=== PATIENT | male | born 1945 | race Caucasian/White ===

== ENCOUNTER 2023-12-02 11:20 | Outpatient (OUT) | payer MEDICARE, SELFPAY ==
[2023-12-02 12:07] LABS: Basophils Absolute Auto 0.1 10^3/uL (0.0-0.1); Basophils Percent Auto 1.1 % (0.2-2.0); Eosinophils Absolute Auto 0.4 10^3/uL (0.0-0.7); Eosinophils Percent Auto 6.8 % (0.9-7.0); Hematocrit 44.7 % (42.0-54.0); Hemoglobin 15.1 g/dL (14.0-18.0); Immature Granulocytes Abs Auto 0.01 10^3/uL (0.00-0.03); Immature Granulocytes Pct Auto 0.2 % (0.0-0.5); Lymphocytes Absolute Auto 2.6 10^3/uL (1.2-3.8); Lymphocytes Percent Auto 46.3 % (20.5-60.0); Mean Corpuscular HGB Conc 33.8 g/dL (29.9-35.2); Mean Corpuscular Hemoglobin 33.3 pg (25.9-34.0); Mean Corpuscular Volume 98.5 fL (80.0-94.0); Mean Platelet Volume 9.2 fL (9.5-13.5); Monocytes Absolute Auto 0.5 10^3/uL (0.3-0.8); Monocytes Percent Auto 8.4 % (1.7-12.0); Neutrophils Absolute Auto 2.1 10^3/uL (1.4-6.5); Neutrophils Percent Auto 37.2 % (43.0-75.0); Platelet Count 135 10^3/uL (150-450); Red Blood Count 4.54 10^6/uL (4.70-6.10); Red Cell Distribution Width 12.5 % (11.0-15.0); White Blood Count 5.7 10^3/uL (4.0-11.0)
[2023-12-02 12:41] LABS: Alanine Aminotransferase 28 U/L (16-63); Albumin Globulin Ratio 1.1; Albumin Level 3.6 g/dL (3.4-5.0); Alkaline Phosphatase 62 U/L (46-116); Anion Gap 14.6; Aspartate Amino Transferase 17 U/L (15-37); BUN Creatinine Ratio 12.8; Bilirubin Direct 0.2 mg/dL (0.0-0.2); Bilirubin Total 0.6 mg/dL (0.2-1.0); Calcium 8.8 mg/dL (8.5-10.1); Carbon Dioxide 27.3 mmol/L (21.0-32.0); Chloride 103 mmol/L (98-107); Chol HDL Ratio 2.8; Cholesterol 114 mg/dL (<=200); Estimated GFR (African America 55 (>=60); Estimated GFR (Non-African Ame 46 (>=60); Globulin 3.3 g/dL; Glucose 114 mg/dL (74-106); HDL Cholesterol 40 mg/dL (40-60); Potassium 3.9 mmol/L (3.5-5.1); Sodium 141 mmol/L (136-145); Total Protein 6.9 g/dL (6.4-8.2); Triglycerides 211 mg/dL (<=150); VLDL CHOLESTEROL 42.2 mg/dL
[2023-12-02 13:14] LABS: Prostate Specific Antigen Dx 0.51 ng/mL (<=4.00)
== END 2023-12-02 11:21 | disposition home or self-care (01) ==
LOC: LAB 11:23
PROVIDERS: PCP Family Medicine; Visit Provider Family Medicine
DX: Z79.899 Other long term (current) drug therapy (principal); I10 Essential (primary) hypertension; E78.5 Hyperlipidemia, unspecified; Z12.5 Encounter for screening for malignant neoplasm of prostate
CPT/HCPCS: 36415; 80048; 80061; 80076; 84153; 85025

== ENCOUNTER 2024-01-21 11:05 | Outpatient (OUT) | payer MEDICARE, SELFPAY ==
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
[2024-01-21 11:54] LABS: Estimated Average Glucose 126 mg/dL
[2024-01-21 12:59] LABS: Anion Gap 15.5; BUN Creatinine Ratio 12.1; Calcium 8.8 mg/dL (8.5-10.1); Carbon Dioxide 25.1 mmol/L (21.0-32.0); Chloride 102 mmol/L (98-107); Estimated GFR (African America 49 (>=60); Estimated GFR (Non-African Ame 41 (>=60); Glucose 189 mg/dL (74-106); Potassium 4.6 mmol/L (3.5-5.1); Sodium 138 mmol/L (136-145)
[2024-01-21 17:06] LABS: Creatinine Urine Random 213.18 mg/dL (20.00-300.00); Protein Creatinine Ratio Urine 0.08; Total Protein Urine Random 16.2 mg/dL (<=11.9)
== END 2024-01-21 11:06 | disposition home or self-care (01) ==
LOC: LAB 11:07
PROVIDERS: PCP Family Medicine; Visit Provider Internal Medicine
DX: R73.09 Other abnormal glucose (principal); R79.89 Other specified abnormal findings of blood chemistry
CPT/HCPCS: 36415; 80048; 82570; 83036; 84156

== ENCOUNTER 2025-04-26 08:56 | Outpatient (OUT) | payer MEDICARE, SELFPAY ==
--- OUTSIDE RECORDS SUMMARY | 2025-04-26 09:00 | XMS_ITS | Encounter Summary ---
Author Organization [facility] Address [address] [address] Care Team Providers Care Furniture Sander Name Role Phone Reed Taveras MD Primary Care Provider [phone] Reed Taveras MD Primary Care Provider [phone] Encounter Details Date Type Department Care Team ([facility] Contact Info) Description 12/02/2023 Orders Only [facility] [address] [place] [phone] Reed Taveras MD [address] [place] [address] Social History Tobacco Use Types Packs/Day Years Used Date Smoking Tobacco: Every Day Cigarettes Smokeless Tobacco: Never PHQ-2 Answer Date Recorded Patient Health Questionnaire-2 Score 0 11/24/2023 Sex and Gender Information Value Date Recorded Sex Assigned at Not on file Legal Sex Male 11:17 AM EST Gender Identity Not on file Sexual Orientation Not on file documented as of this encounter Plan of Treatment Upcoming Encounters Date Type Department Care Team ([facility] Contact Info) Description 10/25/2025 9:45 AM EST Office Visit [facility] [address] [place] [phone] Reed Taveras MD [address] [place] [phone] documented as of this encounter Visit Diagnoses Not on filedocumented in this encounter Care Teams Furniture Sander Relationship Specialty Start Date End Date Reed Taveras MD PCP - General Family Medicine 11/18/23 01/19/24 Reed Taveras MD [address] [place] [phone] PCP - General Family Medicine 01/20/24 documented as of this encounter
--- OUTSIDE RECORDS SUMMARY | 2025-04-26 09:00 | XMS_ITS | Encounter Summary ---
Author Organization [facility] Address [address] [facility] [place] [address] Care Team Providers Care Boat Diesel Motor Mechanic Name Role Phone Reed Taveras MD Primary Care Provider [phone] Encounter Details Date Type Department Care Team ([facility] Contact Info) Description 04/25/2025 Bamboo flowsheet [facility] [address] [place] [address] Reed Taveras MD [address] [place] [address] Social History Tobacco Use Types Packs/Day Years Used Date Smoking Tobacco: Every Day Cigarettes Passive Smoke Exposure: Current Smokeless Tobacco: Never Alcohol Use Standard Drinks/Week Comments Never 0 (1 standard drink = 0.6 oz pur e alcohol) PHQ-2 Answer Date Recorded Patient Health Questionnaire-2 Score 1 04/25/2025 Sex and Gender Information Value Date Recorded Sex Assigned at Not on file Legal Sex Male 11:17 AM EST Gender Identity Not on file Sexual Orientation Not on file documented as of this encounter Plan of Treatment Upcoming Encounters Date Type Department Care Team (Late Contact Info) Description 10/25/2025 9:45 AM EST [facility] Visit [facility] [address] [place] [address] Reed Taveras MD [address] [place] [phone] documented as of this encounter Visit Diagnoses Not on filedocumented in this encounter Additional Health Concerns Assessment Noted Time PHQ-9 Depression Total Score: 2 04/25/20 25 11:00 AM EDT documented as of this encounter Care Teams Boat Diesel Motor Mechanic Relationship Specialty Start Date End Date Reed Taveras MD [address] [place] [address] PCP - General Family Medicine 01/20/24 documented as of this encounter
--- OUTSIDE RECORDS SUMMARY | 2025-04-26 09:00 | XMS_ITS | Clinical Summary ---
Author Organization [facility] Address [address] [place] [address] Care Team Providers Care Gel Coat Sprayer Name Role Phone Reed Taveras MD Primary Care Provider Allergies No known active allergies Medications aspirin 81 MG EC tablet Take 81 mg by mouth in the morning. Active esomeprazole (NexIUM) [address] capsule Take 20 mg by mouth in the morning. Take before meals. Do not open capsule.. Active lisinopril 10 MG tabletIndicatio ns:Essential hypertension, benign TAKE 1 TABLET BY MOUTH IN THE MORNING 90 tablet 3 09/27/2024 Active atorvastatin (Lipitor) 40 MG tabletIndicatio ns:Dyslipidemia TAKE 1 TABLET BY MOUTH AT BEDTIME 90 tablet 3 09/27/2024 Active hydroCHLOROthia zide (HYDRODiuril) 25 MG tabletIndicatio ns:Essential hypertension, benign TAKE 1 TABLET BY MOUTH IN THE MORNING 90 tablet 3 09/27/2024 Active metoprolol tartrate (Lopressor) 25 MG tabletIndicatio ns:Essential hypertension, benign Take 0.5 tablets (12.5 mg) by mouth in the morning and 0.5 tablets (12.5 mg) before bedtime. 90 tablet 3 10/25/2024 Active Active Problems Problem Noted Date Diagnosed Date Medicare annual wellness visit, subsequent 04/25 Assessment & Plan (04/25/2025 11:54 AM EDT): Due for labs. Discussed proper diet and regular aerobic exercise. Need aerobic exercise 5-6 days a week for 30 minutes at a time. Smaller portions and limit total calories. Tetanus every 10 years. Advised not to smoke. Discussed daily Aspirin therapy. Prediabetes 12/02/2023 Stage 3a chronic kidney disease (CKD) 12/02/2023 Assessment & Plan (10/25/2024 12:14 PM EST): Repeat labs next visit. Essential hypertension, benign 11/24/2023 Assessment & Plan (10/25/2024 12:14 PM EST): BP controlled and monitor PRN. Assessment & Plan (11/24/2023 11:13 AM EST): BP controlled and monitor PRN. Coronary atherosclerosis of sun'aq coronary mark ry 11/24/2023 Dyslipidemia 11/24/2023 Gastroesophageal reflux disease 11/24/2023 Assessment & Plan (10/25/2024 12:14 PM EST): Symptoms controlled with nexium and continue. Assessment & Plan (11/24/2023 11:13 AM EST): Symptoms controlled with nexium and continue. Mitral valve stenosis, non-rheumatic 11/24/2023 Screening PSA (prostate specific antigen) 2023 Encounter for long-term (current) use of medicat ions 11/24/2023 Resolved Problems Problem Noted Date Diagnosed Date Resolved Date Elevated random blood glucose level 01/20/2024 10/25/2024 Assessment & Plan (01/20/2024 2:19 PM EDT): Check A1C. Elevated serum creatinine 01/20/2024 Assessment & Plan (01/20/2024 2:19 PM EDT): Likely has underlying CKD. Repeat BMP, along with urine creatinine,protein. Rash in adult 01/20/2024 10/25/2024 Assessment & Plan (01/20/2024 2:20 PM EDT): Discrete annular lesions, localized to LE, extremely pruritic. 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 R/o underlying T2 DM Trial of hydrocortisone cream along with prednisone taper. Encounters Date Type Department Care Team Description 04/25/2025 11:00 AM EDT Office Visit [facility] [address] [place] [address] Reed Taveras MD Medicare annual wellness visit, subsequent (Primary Dx); Fatigue, unspecified type; Dyslipidemia ; Atherosclerosis of sun'aq coronary artery of sun'aq heart without angina pectoris ; Stage 3a chronic kidney disease (CKD) ([facility]); Prediabetes; Encounter for long-term (current) use of medications; Screening PSA (prostate specific antigen) 04/25/2025 Bamboo flowsheet [facility] [address] [place] [phone] Reed Taveras MD from Last 3 Months Family History Medical History Relation Name Comments Coronary artery disease Father Hypertension Father Alzheimer's disease Mother Relation Name Status Comments Father Mother Social History Tobacco Use Types Packs/Day Years Used Date Smoking Tobacco: Every Day Cigarettes Passive Smoke Exposure: Current Smokeless Tobacco: Never Tobacco Cessation:Ready to Q uit: No; Counseling Given: Yes Alcohol Use Standard Drinks/Week Comments Never 0 (1 standard drink = 0.6 oz pur e alcohol) PHQ-2 Answer Date Recorded Patient Health Questionnaire-2 Score 1 04/25/2025 Sex and Gender Information Value Date Recorded Sex Assigned at Not on file Legal Sex Male 11:17 AM EST Gender Identity Not on file Sexual Orientation Not on file Last Filed Vital Signs Vital Sign Reading Time Taken Comments Blood Pressure 134/62 04/25/2025 11:22 AM EDT Pulse 81 04/25/2025 11:22 AM EDT Temperature 36.2 C (97.1 F) 04/25/2025 11:22 AM EDT Respiratory Rate 16 04/25/2025 11:22 AM EDT Oxygen Saturation 94% 04/25/2025 11:22 AM EDT Inhaled Oxygen Concentration - - Weight 79.8 kg (176 lb) 04/25/2025 11:22 AM EDT Height 172.7 cm (5' 8 ) 04/25/2025 11:22 AM EDT Body Mass Index 26.76 04/25/2025 11:22 AM EDT Plan of Treatment Upcoming Encounters Date Type Department Care Team (Late st Contact Info) Description 10/25/2025 9:45 AM EST Office Visit [facility] [address] [place] [address] Reed Taveras MD [address] [place] [phone] Health Maintenance Due Date Last Done Comments Medicare Annual Wellness (AWV) 1945 Pneumococcal Vaccine: 65+ Years (1 of 2 - PCV) 966 Influenza Vaccine (Season Ended) 2025 [place] [phone] Care Teams Gel Coat Sprayer Relationship Specialty Start Date End Date Reed Taveras MD [address] [place] [phone] PCP - General Family Medicine 01/20/24
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
[2025-04-26 09:23] LABS: Basophils Percent Auto 0.8 % (0.2-2.0); Eosinophils Absolute Auto 0.5 10^3/uL (0.0-0.7); Eosinophils Percent Auto 10.9 % (0.9-7.0); Hematocrit 45.5 % (42.0-54.0); Hemoglobin 15.5 g/dL (14.0-18.0); Immature Granulocytes Abs Auto 0.01 10^3/uL (0.00-0.03); Immature Granulocytes Pct Auto 0.2 % (0.0-0.5); Lymphocytes Percent Auto 39.7 % (20.5-60.0); Mean Corpuscular HGB Conc 34.1 g/dL (29.9-35.2); Mean Corpuscular Hemoglobin 32.7 pg (25.9-34.0); Mean Platelet Volume 8.6 fL (9.5-13.5); Monocytes Absolute Auto 0.4 10^3/uL (0.3-0.8); Monocytes Percent Auto 7.5 % (1.7-12.0); Neutrophils Percent Auto 40.9 % (43.0-75.0); Platelet Count 113 10^3/uL (150-450); Red Blood Count 4.74 10^6/uL (4.70-6.10); Red Cell Distribution Width 12.2 % (11.0-15.0)
[2025-04-26 09:45] LABS: Estimated Average Glucose 128 mg/dL; Glycohemoglobin A1C 6.1 % (4.5-6.2)
[2025-04-26 10:03] LABS: Alanine Aminotransferase 27 U/L (16-63); Albumin Globulin Ratio 1.2; Albumin Level 3.5 g/dL (3.4-5.0); Alkaline Phosphatase 71 U/L (46-116); Anion Gap 14.7; Aspartate Amino Transferase 21 U/L (15-37); BUN Creatinine Ratio 14.7; Bilirubin Direct 0.2 mg/dL (0.0-0.2); Bilirubin Total 0.9 mg/dL (0.2-1.0); Calcium 9.5 mg/dL (8.5-10.1); Carbon Dioxide 26.3 mmol/L (21.0-32.0); Chloride 102 mmol/L (98-107); Chol HDL Ratio 2.4; Cholesterol 98 mg/dL (<=200); Estimated GFR (African America 55 (>=60 mL/min/1.73m^2); Estimated GFR (Non-African Ame 45 (>=60 mL/min/1.73m^2); Glucose 174 mg/dL (74-106); HDL Cholesterol 41 mg/dL (40-60); Sodium 139 mmol/L (136-145); Thyroid Stimulating Hormone 1.113 uIU/mL (0.358-3.740); Total Protein 6.5 g/dL (6.4-8.2); Triglycerides 154 mg/dL (<=150); VLDL CHOLESTEROL 30.8 mg/dL
[2025-04-26 10:38] LABS: Prostate Specific Antigen Scrn 0.51 ng/mL (<=4.00)
== END 2025-04-26 08:57 | disposition home or self-care (01) ==
LOC: LAB 08:58
PROVIDERS: PCP Family Medicine; Visit Provider Family Medicine
DX: R73.03 Prediabetes (principal); N18.31 Chronic kidney disease, stage 3a; Z79.899 Other long term (current) drug therapy; Z12.5 Encounter for screening for malignant neoplasm of prostate; E78.5 Hyperlipidemia, unspecified; I25.10 Atherosclerotic heart disease of native coronary artery without angina pectoris; R53.83 Other fatigue
CPT/HCPCS: 36415; 80048; 80061; 80076; 83036; 84443; 85025; G0103